=== PATIENT | female | born 1990 | race Caucasian/White ===

== ENCOUNTER 2024-06-06 12:57 | Emergency (ER) | payer OTHER, SELFPAY ==
[2024-06-06] VITALS (7 sets, daily range): BP systolic 111–137; BP diastolic 66–86; BMI 26.9
[2024-06-06 13:27] LABS: % Basophils 0.5 % (0-2); % Eosinophils 3.1 % (0-6); % Immature Granulocytes 0.3 % (0-0.5); % Lymphocytes 29.1 % (20.5-51.1); % Monocytes 7.8 % (1.7-9.3); % Neutrophils 59.2 % (42.2-75.2); Absolute Eosinophils 0.2 10^3/uL (0-0.7); Absolute Lymphocytes 1.8 10^3/uL (1.2-3.4); Absolute Monocytes 0.5 10^3/uL (0.1-0.6); Absolute Neutrophils 3.6 10^3/uL (1.4-6.5); Hematocrit 39.2 % (37.0-47.0); Hemoglobin 13.5 g/dL (12.0-16.0); Mean Corp Hgb Conc. 34.4 g/dL (33.0-37.0); Mean Corpuscular Hgb 30.1 pg (27.0-31.0); Mean Corpuscular Volume 87.5 fL (81.0-99.0); Mean Platelet Volume 10.8 fL (7.4-10.4); Nucleated Red Blood Cells % 0 %; Platelet Count 219 10^3/uL (130-400); Red Blood Cell Count 4.48 10^6/uL (4.20-5.40); Red Cell Dist. Width 12.7 % (11.5-14.5); White Blood Cell Count 6.2 10^3/uL (4.8-10.8)
[2024-06-06 13:38] LABS: HCG, Serum Qualitative Screen Negative
[2024-06-06 13:41] LABS: ALT (SGPT) 14 U/L (0-35); AST (SGOT) 23 U/L (14-36); Albumin 4.5 g/dl (3.5-5.0); Alkaline Phosphatase 106 U/L (38-126); Blood Urea Nitrogen 15 mg/dl (7-17); Calcium 9.5 mg/dl (8.4-10.2); Carbon Dioxide 28 mmol/L (22-30); Chloride 106 mmol/L (98-107); Glucose 89 mg/dl (70-99); Potassium 4.4 mmol/L (3.5-5.1); Sodium 138 mmol/L (135-145); Total Bilirubin 0.5 mg/dl (0.2-1.3); Total Protein 7.1 g/dl (6.3-8.2); eGFR > 60.00
[2024-06-06 13:49] LABS: D-Dimer 1.05 ug/mlFEU (0.00-0.50); Troponin I < 0.012 ng/ml
--- NOTE | 2024-06-06 15:16 | EDRN ---
Meliza PERRIN in room w/pt at this time.
--- NOTE | 2024-06-06 15:47 | ED.GENMED ---
History of Present Illness
General
Chief Complaint: Chest Pain
Source: patient
Exam Limitations: none
Time Seen by Provider: 06/06/24 14:49
Nursing documentation reviewed up to this point in time: agreed with
History of Present Illness
History of Present Illness:
34-year-old female presenting to the emergency department today with concerns of 2 weeks of central chest dull achy discomfort without radiation no associated nausea vomiting or shortness of breath. No recent trauma surgery immobilization currently
is breast-feeding. Does have an IUD. Denies any specific palliation or provocation. No history of blood clots or leg swelling.
Review of Systems
Review of Systems
Allergies reviewed?: Yes
All Other Systems: ROS reviewed and negative except as documented in HPI and ROS
Phy Exam
Physical Exam
Physical Exam:
GENERAL: Alert , in no apparent distress
EYE: pupils equal and reactive
NECK: Supple, no significant adenopathy.
ENT: o/p clr, mmm.
CARDIAC: Regular rate and rhythm .
LUNGS: Clear breath sounds bilaterally, no acute respiratory distress, no wheezes/rales/rhonchi
ABDOMEN: Soft, without focal tenderness, no r/g, no cvat
NEUROLOGICAL: Alert and oriented, no focal neuro deficits
SKIN: Warm and dry, skin intact.
MUSCULOSKELETAL: No edema, well perfused.
PSYCH: Normal and appropriate interaction.
Scores
Heart Score for Chest Pain Patients
STEMI patient?: No
History: Slightly or Non-Suspicious
ECG: Normal
Age: </= 45 years
Risk Factors: No Risk Factors
Troponin: </= Normal Limit
Heart Score for Chest Pain Patients: 0
Heart Score Risk: 2.5% MACE over next 6 weeks
Course
Orders/Labs/Results
Orders:
Orders
06/06/24 13:03
Electrocardiogram (*1) Urgent
Reason for Study: Chest Pain
Cardiac Monitoring- Treatment ONCE
EKG- Treatment ONCE
IV Insert/Care/Rem.- Treatment PRN
Test Result ONCE
O2 Therapy [RESP] Urgent
Titrate/Wean O2 to maintain O2 sat greater than (%): 90
Special Instructions: Maintain sats >/=90%
Pulse Ox/spot Check [RESP] Urgent
Quantity: 1
Special Instructions: ON ROOM AIR
06/06/24 13:10
Complete Blood Count/With Diff Urgent
Comprehensive Metabolic Panel Urgent
DDimer [D-Dimer] Urgent
HCG, Serum Qualitative Screen Urgent
Comment: Notify provider if positive test present
Troponin I Urgent
06/06/24 15:21
CT Chest Pe Study Urgent
Comment:
Reason For Exam: cp elevated dimer
Abnormal Lab Results
06/06/24
13:10
MPV 10.8 H fL
(7.4-10.4)
D-Dimer 1.05 H ug/mlFEU
(0.00-0.50)
06/06/24 13:10
06/06/24 13:10
Vital Signs
Initial and Last Documented VS:
Initial Vital Signs
Temp Pulse Resp BP Pulse Ox
98.7 F 60 18 111/78 97
06/06/24 12:59 06/06/24 12:59 06/06/24 12:59 06/06/24 12:59 06/06/24 12:59
Last Documented Vital Signs
Temp Pulse Resp BP Pulse Ox
98.7 F 69 17 115/66 98
06/06/24 12:59 06/06/24 18:15 06/06/24 18:15 06/06/24 18:00 06/06/24 18:15
MDM/Problems Addressed
MDM/Problems Addressed:
34-year-old female presenting to the emergency department today with concerns of a dull ache to the central chest without radiation over the past 2 no specific palliation provocation no additional associated symptoms. Labs initially drawn from
triage with an elevated dimer level concerning the CT PE was ordered. Otherwise labs unremarkable troponin negative EKG without concerning features.
*Critical Care Note
Total Time (30-74mins, 75-104mins- exclusive of procedures): Not Applicable
ED Attending Note
-
Portions of this chart may have been created with voice recognition software.� Occasional wrong word or��sound alike� substitutions may have occurred due to the inherent limitations of voice recognition software.
Discharge Plan
Departure
Patient Disposition: Home (Routine Discharge)
Date of Disposition: 06/06/24
Time of Disposition: 19:47
Patient with high blood pressure during this ER visit?: No
Condition: Good
Covid-19: Not Applicable
Discharge Problem:
Chest pain
Instructions: Chest Pain PCP Follow Up
Prescriptions:
No Action
prenat.vits,tanner,ahg-[id number]-[id number] Tablet
1 tab PO DAILY
ibuprofen 600 mg Tablet
600 mg PO Q6HPRN PRN (Reason: moderate pain/cramps) Qty: 30 0RF
Referrals:
Jacquelyn Hunt MD [Family Provider] -
Fuentes Gamble MD [Active] - Follow up in 5-7 days
Activity Restrictions/Additional Instructions:
You came to the emergency department today with concerns of chest discomfort. Here you had a very reassuring assessment with a normal CT scan of your chest EKG and labs. Please follow closely with your primary care doctor for reassessment for any
ongoing symptoms. Return to the emergency department for any progressive symptoms.
Interventions
Interventions:
*Risk Screen - Suicide Last Done: 06/06/24 12:59
*General Assessment Last Done: 06/06/24 12:59
*Neglect/Abuse Screening Last Done: 06/06/24 12:59
ED- Fall Risk Assessment Last Done: 06/06/24 15:08
*ED COVID-19 Vaccine History Last Done: 06/06/24 14:55
ED- Cardiac Assessment Last Done: 06/06/24 15:08
Discharge Date and Time
Print Language: BELARUSIAN
--- NOTE | 2024-06-06 18:25 | EDRN ---
Meliza PERRIN in room w/pt at this time.
[2024-06-06] MEDS: ZOFRAN 4 MG IV (19:55)
== END 2024-06-06 20:00 | disposition home or self-care (01) ==
LOC: EMR 12:57
PROVIDERS: Student in an Organized Health Care Education/Training Program; EMERGENCY PHYSICIAN Student in an Organized Health Care Education/Training Program; FAMILY PHYSICIAN Internal Medicine
DX: R07.89 Other chest pain (principal); R79.89 Other specified abnormal findings of blood chemistry; Z97.5 Presence of (intrauterine) contraceptive device; Z88.6 Allergy status to analgesic agent
CPT/HCPCS: 99284; 96374; 71275; 80053; 84484; 84703; 85025; 85379; 93005; Q9967